=== PATIENT | male | born 1995 | race African-American/Black ===

== ENCOUNTER 2022-08-02 15:54 | Emergency (ER) | payer OTHER ==
[2022-08-02 17:09] LABS: BASOPHIL 0.8 % (0-2); EOSINOPHIL 1.7 % (0-5); HCT 40.8 % (42.0-52.0); HGB 13.8 g/dl (13.2-18.0); LYMPHOCYTE 40.9 % (15-48); MCH 27.8 pg (25.0-31.0); MCHC 33.8 g/dL (32.0-36.0); MCV 82.1 fL (78.0-100.0); MPV 11.3 fL (6.0-9.5); NEUTROPHIL 45.2 % (41-80); NRBC 0; PLT 187 K/uL (150-400); RBC 4.97 M/uL (4.70-6.00); RDW 13.9 % (11.5-14.0); WBC 4.8 K/uL (4.0-10.5)
[2022-08-02 17:30] LABS: INR 0.96 (0.9-1.2); PROTHROMBIN TIME 12.5 SECONDS (11.9-13.9); PTT 24.3 SECONDS (24.9-34.6)
[2022-08-02 17:32] LABS: D-DIMER 0.34 ug/mLFEU (0.00-0.41)
[2022-08-02 17:33] LABS: ALBUMIN 3.9 g/dL (3.4-5.0); BILIRUBIN - TOTAL 0.4 mg/dL (0.2-1.0); BUN/CREAT RATIO (CALC) 14.9 RATIO; CREATININE 0.87 mg/dL (0.67-1.17); GLOBULIN (CALCULATION) 3.6 g/dL; POTASSIUM 4.4 mmol/L (3.5-5.1); TOTAL PROTEIN 7.5 g/dL (6.4-8.2)
[2022-08-02] MEDS ORDERED: NAPROXEN500 MG PO (18:02)
[2022-08-02] MEDS ORDERED: CYCLOBENZAPRINE10 MG PO (18:02)
== END 2022-08-02 18:23 | disposition home or self-care (01) ==
LOC: FER 15:54
PROVIDERS: Internal Medicine
DX: R07.89 Other chest pain (principal); F17.210 Nicotine dependence, cigarettes, uncomplicated; Z28.310 Unvaccinated for COVID-19
CPT/HCPCS: 36415; 71045; 80053; 84484; 85025; 85379; 85610; 85730; 93005; J1885